=== PATIENT | female | born 1945 ===

== ENCOUNTER 2017-11-24 10:41 | Emergency (ER) | payer OTHER, MEDICAID ==
[2017-11-24 10:41] VITALS: BMI 26.2
[2017-11-24 11:11] VITALS: BP 100/53; PULSE 56; RESP 24; TEMP 98.1; O2SAT 95
--- NOTE | 2017-11-24 11:49 | C.PDOC ---
History Of Present Illness 72 y/o female with PMHx of hypercholesterolemia, asthma, gastritis and anxiety presents to ED with complaints of chest pain developed prior to arrival. Patient states she was on the bus sitting when she developed pain with associated mildly difficulty breathing. Patient states pain lasted "few minutes " resolved but came back. Patient admits to having stress test last year. Denies currently having chest painm sob, nausea, vomiting, leg swelling or any other complaints at this time. PMD Dr. Perez Time Seen by Provider: 11/24/17 11:13 Chief Complaint (Nursing): Chest Pain History Per: Patient History/Exam Limitations: no limitations Onset/Duration Of Symptoms: Hrs Current Symptoms Are (Timing): Still Present Past Medical History Reviewed: Historical Data, Nursing Documentation, Vital Signs Vital Signs: Last Vital Signs Temp 98.1 F 11/24/17 11:06 Pulse 56 L 11/24/17 11:06 Resp 24 11/24/17 11:06 BP 100/53 L 11/24/17 11:06 Pulse Ox 95 11/24/17 12:51 - Medical History PMH: Anxiety, Asthma, COPD, Depression, Hypercholesterolemia, Osteoporosis Surgical History: No Surg Hx - [facility] Procedures D & C NEC (10/11/13) Family History: States: Diabetes - Social History Hx Tobacco Use: No Hx Alcohol Use: No Hx Substance Use: No - Immunization History Hx Tetanus Toxoid Vaccination: No Hx Influenza Vaccination: No Hx Pneumococcal Vaccination: Yes Review Of Systems Constitutional: Negative for: Fever, Chills Cardiovascular: Positive for: Chest Pain Respiratory: Negative for: Cough, Shortness of Breath Gastrointestinal: Negative for: Nausea, Vomiting Skin: Negative for: Rash Physical Exam - Physical Exam Appears: Non-toxic, No Acute Distress Skin: Warm, Dry, No Rash Head: Atraumatic, Normacephalic Eye(s): bilateral: Normal Inspection, EOMI Nose: Normal Oral Mucosa: Moist Throat: Normal, No Erythema, No Exudate Neck: Normal, Normal ROM, Supple Chest: Symmetrical, Tenderness (to palpation on left side chest) Cardiovascular: Rhythm Regular Respiratory: Normal Breath Sounds, No Accessory Muscle Use, No Rales, No Rhonchi , No Wheezing Gastrointestinal/Abdominal: Soft, No Tenderness, No Guarding, No Rebound Extremity: Capillary Refill (<2 seconds), No Swelling Neurological/Psych: Oriented x3, Normal Speech ED Course And Treatment - Laboratory Results Result Diagrams: 11/24/17 11:49 11/24/17 11:49 O2 Sat by Pulse Oximetry: 95 (RA) Pulse Ox Interpretation: Normal - Other Rad Chest Xr X-Ray: Viewed By Me, Read By Radiologist Interpretation: Accession No. : [id number]. Patient Name / ID : ELIZ PASTOR / [id number]. Exam Date : 11/24/2017 11:54:15 ( Approved ). Study Comment : Sex / Age : F / 72Y. Creator : Monisha Wilcox MD. Dictator : Monisha Wilcox MD. Continuous Improvement Coordinator : Telecommunications Operator : Monisha Wilcox MD. Approver2 : Report Date : 11/24/2017 12:09:17. My Comment : . HISTORY: chest pain. COMPARISON: Chest x-ray performed 09/19/13. TECHNIQUE: Chest PA and lateral. FINDINGS: LUNGS: Biapical pleural thickening. Chronic appearing interstitial markings. Mild left basilar atelectasis. Please note that chest x- ray has limited sensitivity for the detection of pulmonary masses. PLEURA: No significant pleural effusion identified. No definite pneumothorax . CARDIOVASCULAR: Heart size appears within normal limits. Ectatic aorta. Atherosclerotic calcifications. OSSEOUS STRUCTURES: Degenerative changes. VISUALIZED UPPER ABDOMEN: Unremarkable. OTHER FINDINGS: None. IMPRESSION: Biapical pleural thickening. Chronic appearing interstitial markings. Mild left basilar atelectasis. Progress Note: Aspirin ordered. Pt notes she took aspirin today. Patient is resting comfortably, is no longer having chest pain or shortness of breath. Pt was encoraged to stay for further evaluation, pt refused. Granddaughter and pt aware of risks. Case discussed with Dr Pacheco, states he will follow up with her outpt. Case discussed with Dr Albarado, agreed upon plan and treatment. Against Medical Advice - AMA Patient Left Against Medical Advice: The patient declines admission to the hospital and wishes to leave the Emergency Department. This action is against my medical advice. This decision was made with informed refusal. The patient was told that admission to the hospital is necessary. Explanation of the reasons why were discussed. The risks of leaving were explained to the patient and include, but are not limited to, worsening of known or currently unknown conditions, permanent disability and from undiagnosed or untreated conditions. The patient has the capacity to make this informed decision and understands my explanation of the current medical problem and risks of leaving. The patient voluntarily accepts these risks and signed an AMA form documenting our conversation. The patient was given the opportunity to ask questions and reconsider. The patient was encouraged to return to the Emergency Department at any time for further care. Disposition - Disposition Referrals: Laura Perez MD [Staff Provider] - Disposition: AGAINST MEDICAL ADVICE Disposition Time: 12:43 Condition: STABLE Additional Instructions: Follow up with your primary medical doctor or clinic in 2-5 days for further evaluation. Return to the emergency department at any time if symptoms persist or worsen. Instructions: Chest Pain (ED) Forms: [facility] (Nauruan), (AMA) Informed Refusal - Clinical Impression Clinical Impression: Chest pain - PA / FOOD SERVICE DIRECTOR / Resident Statement MD/DO has reviewed & agrees with the documentation as recorded. - Scribe Statement The provider has reviewed the documentation as recorded by the Yaima Latif All medical record entries made by the Yaima were at my direction and personally dictated by me. I have reviewed the chart and agree that the record accurately reflects my personal performance of the history, physical exam, medical decision making, and the department course for this patient. I have also personally directed, reviewed, and agree with the discharge instructions and disposition.
[2017-11-24 11:55] LABS: BASO % 0.6 % (0.0-2.0); EOS # 0.1 K/uL (0.0-0.7); EOS % 1.9 % (0.0-4.0); HEMOGLOBIN 13.4 g/dL (11.0-16.0); LYMPH # 2.3 K/uL (1.0-4.3); LYMPH % 42.1 % (20.0-40.0); MEAN CELL VOLUME 88.3 fL (81.0-99.0); MEAN CORPUSCULAR HEMOGLOBIN 29.5 pg (27.0-31.0); MEAN CORPUSCULAR HGB CONC 33.5 g/dL (33.0-37.0); MEAN PLATELET VOLUME 7.8 fL (7.2-11.7); MONO # 0.5 K/uL (0.0-0.8); MONO % 8.8 % (0.0-10.0); NEUT # 2.5 K/uL (1.8-7.0); NEUT % 46.6 % (50.0-75.0); NRBC % 0.1 % (0.0-2.0); RBC 4.53 Mil/uL (3.80-5.20); RED CELL DISTRIBUTION WIDTH 12.9 % (11.5-14.5); WHITE BLOOD COUNT 5.4 K/uL (4.8-10.8)
[2017-11-24 12:06] LABS: ALB/GLOB RATIO 1.1 (1.0-2.1); ALT/SGPT 22 U/L (9-52); AST/SGOT 25 U/L (14-36); BLOOD UREA NITROGEN 18 mg/dL (7-17); CALCIUM 8.5 mg/dl (8.6-10.4); GFR AFRICAN-AMERICAN > 60; GFR NON-AFRICAN AMERICAN > 60
--- NOTE | 2017-11-24 12:11 | RAD ---
HISTORY: chest pain COMPARISON: Chest x-ray performed 09/19/13 TECHNIQUE: Chest PA and lateral FINDINGS: LUNGS: Biapical pleural thickening. Chronic appearing interstitial markings. Mild left basilar atelectasis. Please note that chest x-ray has limited sensitivity for the detection of pulmonary masses. PLEURA: No significant pleural effusion identified. No definite pneumothorax . CARDIOVASCULAR: Heart size appears within normal limits. Ectatic aorta. Atherosclerotic calcifications. OSSEOUS STRUCTURES: Degenerative changes. VISUALIZED UPPER ABDOMEN: Unremarkable. OTHER FINDINGS: None. IMPRESSION: Biapical pleural thickening. Chronic appearing interstitial markings. Mild left basilar atelectasis.
[2017-11-24 12:18] LABS: B-TYPE NATRIURETIC PEPTIDE 273 pg/mL (0-900)
--- NOTE | 2017-11-25 16:29 | CARD ---
APPROVED REPORT EKG Measurement Heart [id number] <Conclusion> Sinus bradycardia Otherwise normal ECG
== END 2017-11-24 13:00 | disposition left against medical advice (07) ==
LOC: C.ER 10:41
DX: R07.9 Chest pain, unspecified (principal); E78.00 Pure hypercholesterolemia, unspecified; F41.9 Anxiety disorder, unspecified